=== PATIENT | male | born 1990 | race Caucasian/White ===

== ENCOUNTER 2022-12-23 10:15 | Inpatient (IN) | payer SELFPAY ==
[2022-12-23 10:23] VITALS: BP 111/77; PULSE 72; RESP 18; TEMP 37; O2SAT 95
[2022-12-23 10:46] VITALS: BMI 31.1
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
--- NOTE | 2022-12-23 10:57 | W.PM.NPUH&PS ---
Providers/Chief Complaint Admitting Physician: Jean Dennis MD Chief Complaint: SI Meds NPU Home Medications Medication Instructions Recorded Confirmed Last Taken Type bupropion HCl 150 mg 24 hr tablet, 150 mg PO QAM 12/23/22 12/23/22 Unknown History extended release gabapentin 300 mg tablet 300 mg PO QID 12/23/22 12/23/22 Unknown History naltrexone 50 mg tablet 50 mg PO DAILY 12/23/22 12/23/22 Unknown History paliperidone 6 mg tablet,extended 6 mg PO QAM 12/23/22 12/23/22 Unknown History release 24 hr quetiapine 100 mg tablet 100 mg PO BEDTIME 12/23/22 12/23/22 Unknown History Allergies Allergy/AdvReac Type Severity Reaction Status Date / Time No Known Allergies Allergy Verified 12/23/22 11:28 Coding Level of Care Code Acute Code for Chg Fwd Diagnoses
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
[2022-12-23] MEDS: flu vacc pf 2023-24 (6 mos+) 60 MCG IM (12:33)
[2022-12-23 14:00] VITALS: BP 111/77; PULSE 72; RESP 18; TEMP 37; O2SAT 95
[2022-12-23 20:16] VITALS: BP 108/59; PULSE 69; RESP 18; TEMP 37.1; O2SAT 94
[2022-12-23] MEDS: quetiapine 100 mg Tablet PO (20:22)
[2022-12-24 06:00] VITALS: BP 105/67; PULSE 72; RESP 18; TEMP 36.6; O2SAT 96
[2022-12-24] MEDS: buPROPion XL (24 HR) 150 mg Tablet PO (06:24)
[2022-12-24 10:52] LABS: Amphetamines Screen Urine Negative (Negative); Barbiturates Screen Urine Negative (Negative); Benzodiazepines Screen Urine Negative (Negative); Cocaine Screen Urine Negative (Negative); Opiate Screen Urine Negative (Negative); PCP Screen Urine Negative (Negative); THC Screen Urine Negative (Negative)
[2022-12-24 13:43] VITALS: BP 126/82; PULSE 83; RESP 18; TEMP 36.7; O2SAT 95
[2022-12-24] MEDS: paliperidone palmitate 156 mg Syringe IM (16:34)
--- NOTE | 2022-12-24 16:34 | PC.NURSE ---
Administered Invega 156mg IM injection into right deltoid. Patient cooperative and tolerated shot well.
--- NOTE | 2022-12-24 18:12 | PC.NURSE ---
vivitrol 380mg administered to patient in right dorsogluteal IM. Patient tolerated well.
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
[2022-12-24 20:01] VITALS: BP 113/76; PULSE 107; RESP 20; TEMP 36.4; O2SAT 98
[2022-12-24] MEDS: quetiapine 100 mg Tablet PO (20:31)
[2022-12-25 06:00] VITALS: BP 95/58; PULSE 73; RESP 16; TEMP 36.4; O2SAT 97
[2022-12-25] MEDS: buPROPion XL (24 HR) 150 mg Tablet PO (06:12)
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
[2022-12-25 07:37] VITALS: BP 95/58; PULSE 73; RESP 16; TEMP 36.4; O2SAT 97
== END 2022-12-25 08:55 | disposition home or self-care (01) | DRG 882 ==
PROVIDERS: Admitting Provider Psychiatry & Neurology Psychiatry; Visit Provider Psychiatry & Neurology Psychiatry
DX: F43.10 Post-traumatic stress disorder, unspecified (principal); R45.851 Suicidal ideations; Z59.01 Sheltered homelessness; F25.9 Schizoaffective disorder, unspecified; F10.91 Alcohol use, unspecified, in remission; F12.90 Cannabis use, unspecified, uncomplicated; Z81.8 Family history of other mental and behavioral disorders; Z81.3 Family history of other psychoactive substance abuse and dependence; Z62.812 Personal history of neglect in childhood; Z62.811 Personal history of psychological abuse in childhood; Z62.810 Personal history of physical and sexual abuse in childhood; F41.9 Anxiety disorder, unspecified; F32.A Depression, unspecified
CPT/HCPCS: 80306; 90471; 90686; 96372; 97150; 97165